=== PATIENT | female | born 1995 | race African-American/Black ===

== ENCOUNTER 2021-08-23 14:41 | Emergency (ER) | payer MEDICAID, OTHER, SELFPAY ==
[2021-08-23 16:14] LABS: #Eosinphils 0.3 10x3/uL (0.0-0.5); #Monocytes 0.7 10x3/uL (0.0-1.1); #Neutrophils 5.9 10x3/uL (1.5-8.4); %Basophils 0.4 % (0.0-2.0); %Eosinophils 3.2 % (0.0-6.0); %Lymphocytes 15.4 % (18.0-47.0); %Neutrophils 72.6 % (40.0-75.0); Hemoglobin 12.9 g/dL (12.0-15.5); Mean Corpuscular HGB CONC 32.3 g/dL (32.0-36.0); Mean Corpuscular Hemoglobin 28.5 pg (27.0-33.0); Mean Corpuscular Volume 88.3 fl (81.6-98.3); Platelet Count 149 10x3/uL (150-450); RBC Distribution Width 12.6 % (11.5-14.5); Red Blood Cell (RBC) Count 4.53 10x6/uL (3.90-5.03); White Blood Cell (WBC) Count 8.1 10x3/uL (3.5-10.5)
[2021-08-23 16:28] LABS: Bilirubin Neg (Negative); Blood, Urine 50 (Negative); Clarity Cloudy (Clear); Glucose, Urine (Dipstick) Normal (Negative); Ketone, Urine 5 mg/dL (Negative); Leukocyte 500 (Negative); Nitrite Negative (Negative); Protein, Urine (Dipstick) Negative (Neg-Trace); Specific Gravity, Urine 1.015 (1.002-1.036); Urobilinogen Normal mg/dL (Less than 2)
[2021-08-23 16:43] LABS: Bacteria/HPF 2+ HPF (None Seen); Mucous/LPF Rare LPF (<2+); RBC/HPF 0-3 HPF (0-3); Transitional Epithelial 0-3 HPF (None Seen)
== END 2021-08-23 17:26 | disposition home or self-care (01) ==
LOC: CSHERS 14:41
DX: O20.0 Threatened abortion (principal); Z3A.08 8 weeks gestation of pregnancy
CPT/HCPCS: 81003; 81015; 84702; 85025; 86900; 86901

== ENCOUNTER 2021-08-31 15:59 | Emergency (ER) | payer MEDICAID, OTHER ==
[2021-08-31 17:46] LABS: Hemoglobin 11.7 g/dL (12.0-15.5); Mean Corpuscular Hemoglobin 28.1 pg (27.0-33.0); Mean Platelet Volume 13.4 fl (7.4-10.4); Platelet Count 114 10x3/uL (150-450); Red Blood Cell (RBC) Count 4.16 10x6/uL (3.90-5.03); White Blood Cell (WBC) Count 8.1 10x3/uL (3.5-10.5)
[2021-08-31 17:57] LABS: MDiff Complete? YES
[2021-08-31 18:24] LABS: Eosinophils 3 % (0-10); Lymphocytes 14 % (21-51); Monocytes 8 % (0-10); Neutrophil 75 % (42-75)
== END 2021-08-31 20:35 | disposition home or self-care (01) ==
LOC: CSHERS 15:59
DX: O03.9 Complete or unspecified spontaneous abortion without complication (principal)
CPT/HCPCS: 36415; 85025; 86900; 86901

== ENCOUNTER 2022-11-05 20:00 | Inpatient (IN) | payer OTHER ==
[2022-11-05 20:17] VITALS: BMI 34.8
[2022-11-05] MEDS ORDERED: hydrALAZINE 20 MG/ML VIAL SLOW IVP PRN ×2 (20:29→22:18)
[2022-11-05] MEDS ORDERED: Ondansetron PF 4 MG/2 ML Vial IVP PRN (22:18)
[2022-11-05] MEDS ORDERED: Promethazine HCl 25 MG/ML VIAL IM PRN (22:18)
[2022-11-05] MEDS ORDERED: Methylergonovine 0.2 MG/ML VIAL IM PRN (22:20)
[2022-11-05] MEDS ORDERED: fentaNYL 50 mcg/mL 1 mL Vial SLOW IVP PRN (22:20)
[2022-11-05] MEDS ORDERED: Misoprostol 200 MCG TAB PR PRN (22:20)
[2022-11-05] MEDS ORDERED: Diphenoxylate HCl/Atropine Tablet PO PRN (22:20)
[2022-11-05] MEDS ORDERED: Acetaminophen 500 MG TAB PO PRN (22:20)
[2022-11-05] MEDS ORDERED: Tranexamic Acid 1,000 MG/10 ML VIAL IVP PRN (22:20)
[2022-11-05] MEDS ORDERED: Carboprost 250 MCG/ML AMP IM PRN (22:20)
[2022-11-05] MEDS ORDERED: Lidocaine 1% (PF) 30 ML VIAL SC PRN (22:24)
[2022-11-05] MEDS ORDERED: Ibuprofen 800 MG TAB PO PRN (22:24)
[2022-11-05] MEDS ORDERED: NS w/ Oxytocin 30 units 500 ML IV SCH ×2 (22:30)
[2022-11-05] MEDS ORDERED: Penicillin G Potassium 5 MILL.UNITS in Sodium Chloride 0.9% 100 ML IVPB SCH (22:30)
[2022-11-05 23:29] LABS: Hemoglobin 10.8 g/dL (12.0-15.5); Mean Corpuscular HGB CONC 31.2 g/dL (32.0-36.0); Mean Corpuscular Volume 89.6 fl (81.6-98.3); Mean Platelet Volume 13.6 fl (7.4-10.4); Platelet Count 148 10x3/uL (150-450); RBC Distribution Width 14.3 % (11.5-14.5); Red Blood Cell (RBC) Count 3.86 10x6/uL (3.90-5.03); White Blood Cell (WBC) Count 10.4 10x3/uL (3.5-10.5)
[2022-11-05 23:59] LABS: HBSAg Index 0.15 S/CO (0-0.99); Hep B Surf Ag - L&D Non-Reactive S/CO (NonReactive); Syphilis Antibody Nonreactive (Nonreactive); Syphilis Antibody Index 0.04 S/CO (<1.00 Non-Reactive)
[2022-11-06] MEDS: Pen G 2.5 MILL.UNITS/50 ML BAG IVPB SCH ×5 (02:59→19:55)
[2022-11-06] MEDS ORDERED: fentaNYL/Ropivacaine Epidural 100 ML ONE (04:02)
[2022-11-06] MEDS ORDERED: Naloxone HCl 0.4 mg/ml Vial IVP PRN ×2 (04:37)
[2022-11-06] MEDS ORDERED: diphenhydrAMINE 50 MG/ML VIAL IVP PRN (04:37)
[2022-11-06] MEDS ORDERED: ePHEDrine Sulfate 50 MG/10 ML VIAL SLOW IVP PRN (04:37)
[2022-11-06] MEDS ORDERED: Ondansetron PF 4 MG/2 ML Vial IVP PRN (04:37)
[2022-11-06] MEDS ORDERED: Acetaminophen 325 MG TAB PO PRN (04:37)
[2022-11-06] MEDS ORDERED: Promethazine HCl 25 MG/ML VIAL IM PRN (04:37)
[2022-11-06] MEDS ORDERED: Moisturizing Cream (Eucerin) 113 GM JAR TOP PRN (04:37)
[2022-11-06] MEDS ORDERED: Lactated Ringer's 500 ML IV PRN (04:37)
[2022-11-06] MEDS ORDERED: fentaNYL 2 mcg/Ropivacaine 0.2% Epidural 100 ML CADD EPIDURAL SCH (04:45)
[2022-11-06] MEDS ORDERED: Communication Order-Pharmacy FS SCH (04:45)
[2022-11-06] MEDS ORDERED: diphenhydrAMINE 25 MG CAP PO PRN (16:08)
[2022-11-06] MEDS ORDERED: Milk Of Magnesia 30 ML UDCUP PO PRN (16:08)
[2022-11-06] MEDS ORDERED: hydrALAZINE 20 MG/ML VIAL SLOW IVP PRN (16:08)
[2022-11-06] MEDS ORDERED: Benzocaine-Menthol 82.5 ML CAN TOP PRN (16:08)
[2022-11-06] MEDS ORDERED: Preparation H Ointment 28 GM TUBE PR PRN (16:08)
[2022-11-06] MEDS ORDERED: Bisacodyl 10 MG SUPP PR PRN (16:08)
[2022-11-06] MEDS ORDERED: Boostrix 0.5 ML (Tdap) VIAL (>/=7 yrs of age) IM ONE (16:08)
[2022-11-06] MEDS ORDERED: Lanolin Ointment 7 GM TUBE TOP PRN (16:08)
[2022-11-06] MEDS ORDERED: Bupivacaine HCl 0.5%/Epinephrine 1:200,000/PF 30 ml Vial ONE (19:41)
[2022-11-06] MEDS: Ferrous Sulfate 325 MG TAB PO SCH (19:56)
[2022-11-06] MEDS: Docusate 100 MG CAP PO SCH (21:35)
[2022-11-06] MEDS: Ibuprofen 800 MG TAB PO SCH (21:35)
[2022-11-07] MEDS ORDERED: traMADol HCl 50 MG TAB PO PRN ×2 (05:00)
[2022-11-07] MEDS: Ibuprofen 800 MG TAB PO SCH ×2 (06:09→13:36)
[2022-11-07] MEDS: Docusate 100 MG CAP PO SCH (07:41)
[2022-11-07] MEDS ORDERED: Prenatal Vitamin 1 TAB PO SCH (09:00)
[2022-11-07] MEDS: Ferrous Sulfate 325 MG TAB PO SCH (11:52)
[2022-11-07 15:52] VITALS: BP 130/92; TEMP 98.1
== END 2022-11-07 20:25 | disposition home or self-care (01) | DRG 806 ==
LOC: CSHLD/OP 20:00 → CSHLD 22:41 → CSHPP 11-06 20:15
PROVIDERS: ADMIT Obstetrics & Gynecology; ATTEND Obstetrics & Gynecology
PROC: 10E0XZZ Delivery of Products of Conception, External Approach (ICD-10-PCS; principal; 2022-11-06)
DX: O99.824 Streptococcus B carrier state complicating childbirth (principal); O98.52 Other viral diseases complicating childbirth; Z37.0 Single live birth; B00.9 Herpesviral infection, unspecified; Z3A.38 38 weeks gestation of pregnancy; Z79.899 Other long term (current) drug therapy
CPT/HCPCS: 36415; 51702; 85027; 86780; 86850; 86900; 86901; 87340; 99285; J2540; J2590; J3490

== ENCOUNTER 2024-02-16 17:31 | Emergency (ER) | payer OTHER, SELFPAY ==
[2024-02-16] MEDS ORDERED: Ondansetron PF 4 MG/2 ML Vial ONE (18:00)
[2024-02-16 18:36] LABS: #Basophils 0.04 10x3/uL (0.0-0.2); #Eosinophils 0.12 10x3/uL (0.0-0.5); #Monocytes 0.44 10x3/uL (0.0-1.1); #Neutrophils 5.16 10x3/uL (1.5-8.4); %Basophils 0.6 % (0.0-2.0); %Eosinophils 1.7 % (0.0-6.0); %Lymphocytes 18.7 % (18.0-47.0); %Monocytes 6.2 % (0.0-10.0); %Neutrophils 72.4 % (40.0-75.0); Hematocrit 34.3 % (34.9-44.5); Hemoglobin 11.2 g/dL (12.0-15.5); Mean Corpuscular HGB CONC 32.7 g/dL (32.0-36.0); Mean Corpuscular Hemoglobin 28.2 pg (27.0-33.0); Mean Corpuscular Volume 86.4 fL (81.6-98.3); Mean Platelet Volume 13.8 fL (7.4-10.4); Platelet Count 127 10x3/uL (150-450); RBC Distribution Width 13.2 % (11.5-14.5); Red Blood Cell (RBC) Count 3.97 10x6/uL (3.90-5.03); White Blood Cell (WBC) Count 7.1 10x3/uL (3.5-10.5)
[2024-02-16 18:48] LABS: BHCG - Serum POSITIVE (NEGATIVE); Pregs Control Background? CLEAR/WHITE (CLR/WHITE); Pregs Control Bar Appear? YES (CONTROL BAR)
[2024-02-16 18:55] LABS: ALT (SGPT) Less than 7 U/L (8-55); AST (SGOT) 11 U/L (5-34); Albumin 3.8 g/dL (3.5-5.0); Alkaline Phosphatase 68 U/L (40-110); Anion Gap 15 mmol/L (10-20); BUN (Urea Nitrogen) 7 mg/dL (7.0-18.7); Bilirubin, Total 0.8 mg/dL (0.2-1.2); Calc. Creatinine Clearance 0 mL/min (70-130); Calcium 9.3 mg/dL (7.8-10.44); Carbon Dioxide 19 mmol/L (22-29); Chloride 106 mmol/L (98-107); Estimated GFR 120; Globulin 3.4 g/dL (2.4-3.5); Glucose 77 mg/dL (70-105); Potassium 2.9 mmol/L (3.5-5.1); Protein, Total 7.2 g/dL (6.0-8.3); Sodium 137 mmol/L (136-145)
[2024-02-16] MEDS ORDERED: Potassium Chloride 10 MEQ in Premix 1 BAG IVPB SCH (19:45)
[2024-02-16 20:45] LABS: Bilirubin Neg (Negative); Blood, Urine 150 (Negative); Clarity Clear (Clear); Glucose, Urine (Dipstick) Normal (Negative); Ketone, Urine 50 mg/dL (Negative); Leukocyte Negative (Negative); Nitrite Negative (Negative); Protein, Urine (Dipstick) Negative (Neg-Trace); Urobilinogen Normal mg/dL (Less than 2)
[2024-02-16 21:08] LABS: CAUTI Indications for Culture Pelvic or flank pain
[2024-02-16 21:09] LABS: Bacteria/HPF 2+ HPF (None Seen)
[2024-02-16 21:10] LABS: Mucous/LPF 1+ LPF (<2+)
[2024-02-16 21:11] LABS: Urine Culture Reflex No No
== END 2024-02-16 21:54 | disposition home or self-care (01) ==
LOC: CSHERS 17:31
DX: O99.611 Diseases of the digestive system complicating pregnancy, first trimester (principal); K52.9 Noninfective gastroenteritis and colitis, unspecified; O67.8 Other intrapartum hemorrhage; O99.281 Endocrine, nutritional and metabolic diseases complicating pregnancy, first trimester; E87.6 Hypokalemia; Z3A.01 Less than 8 weeks gestation of pregnancy
CPT/HCPCS: 36415; 76856; 80053; 81001; 84702; 84703; 85025; 86900; 86901; 87428; 96361; 96365; 96366; 96375; J2405; J3480

== ENCOUNTER 2024-03-01 10:12 | Emergency (ER) | payer SELFPAY ==
[2024-03-01 13:01] LABS: #Basophils 0.02 10x3/uL (0.0-0.2); #Eosinophils 0.16 10x3/uL (0.0-0.5); #Monocytes 0.54 10x3/uL (0.0-1.1); #Neutrophils 3.55 10x3/uL (1.5-8.4); %Basophils 0.4 % (0.0-2.0); %Lymphocytes 18.3 % (18.0-47.0); %Monocytes 10.3 % (0.0-10.0); %Neutrophils 67.6 % (40.0-75.0); Hematocrit 35.4 % (34.9-44.5); Hemoglobin 11.1 g/dL (12.0-15.5); Mean Corpuscular HGB CONC 31.4 g/dL (32.0-36.0); Mean Corpuscular Hemoglobin 27.8 pg (27.0-33.0); Mean Corpuscular Volume 88.7 fL (81.6-98.3); Mean Platelet Volume 13.3 fL (7.4-10.4); Platelet Count 157 10x3/uL (150-450); RBC Distribution Width 13.3 % (11.5-14.5); Red Blood Cell (RBC) Count 3.99 10x6/uL (3.90-5.03); White Blood Cell (WBC) Count 5.3 10x3/uL (3.5-10.5)
[2024-03-01 13:05] LABS: ALT (SGPT) 10 U/L (8-55); AST (SGOT) 14 U/L (5-34); Albumin 3.8 g/dL (3.5-5.0); Alkaline Phosphatase 72 U/L (40-110); Anion Gap 12 mmol/L (10-20); BUN (Urea Nitrogen) 11 mg/dL (7.0-18.7); Bilirubin, Total 0.6 mg/dL (0.2-1.2); Calc. Creatinine Clearance 0 mL/min (70-130); Calcium 9.1 mg/dL (7.8-10.44); Carbon Dioxide 24 mmol/L (22-29); Chloride 106 mmol/L (98-107); Estimated GFR 107; Globulin 3.5 g/dL (2.4-3.5); Glucose 84 mg/dL (70-105); Potassium 3.8 mmol/L (3.5-5.1); Protein, Total 7.3 g/dL (6.0-8.3); Sodium 138 mmol/L (136-145)
[2024-03-01 14:10] LABS: Bilirubin Neg (Negative); Blood, Urine 50 (Negative); Glucose, Urine (Dipstick) Normal (Negative); Ketone, Urine 5 mg/dL (Negative); Leukocyte 25 (Negative); Nitrite Negative (Negative); Protein, Urine (Dipstick) 15 mg/dl (Neg-Trace); Specific Gravity, Urine 1.015 (1.005-1.030); pH, Urine 6.5 (5.0-9.0)
[2024-03-01] MEDS ORDERED: Acetaminophen 500 MG TAB ONE (14:12)
[2024-03-01 14:14] LABS: Clarity Clear (Clear)
[2024-03-01 14:28] LABS: Bacteria/HPF 3+ HPF (None Seen); CAUTI Indications for Culture Pregnancy; RBC/HPF 0-3 HPF (0-3); Squamous Epithelial Greater than 50 HPF (0-3)
[2024-03-01 14:29] LABS: Urine Culture Reflex No No; Urine Culture Reflex Yes Yes
== END 2024-03-01 14:45 | disposition home or self-care (01) ==
LOC: CSHERS 10:12
DX: U07.1 COVID-19 (principal); Z55.6 Problems related to health literacy
CPT/HCPCS: 71045; 76856; 80053; 81001; 84702; 85025; 87086; 87428